=== PATIENT | female | born 1985 | race Caucasian/White ===

== ENCOUNTER 2022-10-14 08:04 | Emergency (ER) | payer OTHER ==
[2022-10-14] MEDS ORDERED: Ibuprofen 800 MG TAB ONE (08:23)
== END 2022-10-14 08:35 | disposition home or self-care (01) ==
LOC: ER/OP 08:04 → ERS 08:04 → EDSTATUS 08:14 → ERS 08:35
DX: S00.03XA Contusion of scalp, initial encounter (principal); F17.210 Nicotine dependence, cigarettes, uncomplicated; W22.09XA Striking against other stationary object, initial encounter
CPT/HCPCS: 99283